=== PATIENT | female | born 1935 | race African-American/Black ===

== ENCOUNTER 2018-02-23 16:27 | Observation (INO) | payer OTHER ==
[~2018-02-23] VITALS: Ht 165.1 cm; Wt 86.6 kg
[~2018-02-23 16:27] MED LIST: ACETAMINOPHEN325 M1 PO; AMARYL1 MG PER TUBE; ASPIR 8181 MG PO; CARVEDILOL12.5 MG PER TUBE; CLONIDINE0.1 PER TUBE; CYMBALTA30 MG PER TUBE; DAKIN S; DOCUSATE S50 MG/5 M2 PER TUBE; ENOXAPARIN100 MG/11 SUBQ; GLUCERNA; HEPARIN SO5000 UNIT2 SUBQ; LINEZOLID IV; LISINOPRIL10 MG PER TUBE; LOPRESSOR25 PER TUBE; METOCLOPRAM5 MG/5 ML PER TUBE; MULTIVITAMINS PO; NORCO 5-325 TA1 EACH PO; NOVOLOG100 UNIT/1; NYSTATIN 100,0015 GM TOP; PANTOPRAZOLE PER TUBE; PANTOPRAZOLE SO40 M1 PER TUBE; SIMVASTATIN20 MG PER TUBE; TRAMADOL 50 MG50 MG PO; VITAMIN D35000 UNI1 PER TUBE; VITAMINC500 PO; ZOSYN IV; [UNRECOGNIZED DRUG - OTHER]; [UNRECOGNIZED DRUG - OTHER]
[2018-02-23 16:28] VITALS: BP 138/51
[2018-02-23] MEDS ORDERED: LISINOPRIL10 MG PER TUBE (18:38)
[2018-02-23] MEDS ORDERED: TUMS PER TUBE (18:40)
[2018-02-23] MEDS ORDERED: TYLENOL EXTRA500 MG PER TUBE (18:40)
[2018-02-23 18:49] VITALS: BP 171/61
[2018-02-23 18:55] VITALS: BP 171/61
[2018-02-23 19:26] VITALS: BP 171/61
[2018-02-23 19:50] VITALS: BP 141/92
[2018-02-23 21:20] LABS: HEMATOCRIT 35.9 % (37.0-47.0); HEMOGLOBIN 12.1 gm/dL (12.0-15.0); MCH 31.5 pg (26.0-34.0); MCHC 33.8 g/dL (28.0-37.0); MCV 93.3 fL (80.0-100.0); RBC 3.84 mil/uL (4.20-5.00); RDW 13.6 % (10.5-14.5); WBC 7.3 thou/uL (4.0-11.0)
[2018-02-23 21:28] LABS: CALCIUM 9.3 mg/dL (8.5-10.1); CREATININE 1.1 mg/dL (0.6-1.0); POTASSIUM 3.7 mmol/L (3.5-5.1)
[2018-02-23 21:33] LABS: INR 1.1
[2018-02-24] MEDS ORDERED: SSD CREAM 1% 5050 GM TOP (03:07)
[2018-02-24] MEDS ORDERED: GLUCAGON EMERGEN1 MG SUBQ (03:09)
[2018-02-24] MEDS ORDERED: VITAMIN D31000 UNI2 PER TUBE (03:16)
[2018-02-24 03:45] VITALS: BP 137/86
[2018-02-24 07:40] VITALS: BP 166/56
== END 2018-02-24 15:45 ==
LOC: ER 16:27 → 4E 18:11 → EROBS 18:11 → 4E 19:28
PROVIDERS: Hospitalist
DX: K94.23 Gastrostomy malfunction (principal); E11.9 Type 2 diabetes mellitus without complications; F03.90 Unspecified dementia, unspecified severity, without behavioral disturbance, psychotic disturbance, mood disturbance, and anxiety; F32.9 Major depressive disorder, single episode, unspecified; I10 Essential (primary) hypertension; Z86.73 Personal history of transient ischemic attack (TIA), and cerebral infarction without residual deficits; Z79.4 Long term (current) use of insulin; Z43.1 Encounter for attention to gastrostomy

== ENCOUNTER 2018-04-11 20:09 | Emergency (ER) | payer OTHER ==
[~2018-04-11] VITALS: Ht 157.5 cm; Wt 59.0 kg
[~2018-04-11 20:09] MED LIST changes: +GLUCAGON EMERGEN1 MG SUBQ; +SSD CREAM 1% 5050 GM TOP; +TUMS PER TUBE; +TYLENOL EXTRA500 MG PER TUBE; +VITAMIN D31000 UNI2 PER TUBE
== END 2018-04-11 23:27 ==
LOC: ER 20:09
DX: K94.23 Gastrostomy malfunction (principal); I10 Essential (primary) hypertension; E11.9 Type 2 diabetes mellitus without complications; E66.9 Obesity, unspecified; F32.9 Major depressive disorder, single episode, unspecified; F03.90 Unspecified dementia, unspecified severity, without behavioral disturbance, psychotic disturbance, mood disturbance, and anxiety; Z68.23 Body mass index [BMI] 23.0-23.9, adult; Z86.73 Personal history of transient ischemic attack (TIA), and cerebral infarction without residual deficits; Z86.718 Personal history of other venous thrombosis and embolism; Z86.2 Personal history of diseases of the blood and blood-forming organs and certain disorders involving the immune mechanism